=== PATIENT | male | born 1995 | race Caucasian/White ===

== ENCOUNTER 2024-04-24 22:52 | Emergency (ER) | payer MEDICAID ==
[~2024-04-24] VITALS: Ht 167.6 cm; Wt 75.3 kg
[2024-04-24 22:57] VITALS: BP 135/81; PULSE 105; RESP 19; TEMP 98.2; O2SAT 97
[2024-04-25 00:22] VITALS: PULSE 94; RESP 18; O2SAT 98
[2024-04-25] MEDS: ALBUTEROL SULFATE/IPRATROPIU 3 ML SOL IH ONE (00:22)
[2024-04-25 00:46] LABS: BASOPHILS # (AUTO) 0.1 K/uL (0.00-0.22); BASOPHILS % (AUTO) 0.7 % (0.0-2.0); EOSINOPHILS # (AUTO) 0.1 K/uL (0-0.4); EOSINOPHILS % (AUTO) 1.6 % (0.0-4.0); HEMATOCRIT 45.6 % (36-52); HEMOGLOBIN 15.6 g/dL (12.0-18.0); LYMPHOCYTES # (AUTO) 1.6 K/uL (2.0-11.5); LYMPHOCYTES % (AUTO) 20.9 % (20.5-51.1); MEAN CORPUSCULAR HEMOGLOBIN 33 pg (27-31); MEAN CORPUSCULAR HGB CONC 34 g/dL (33-37); MEAN CORPUSCULAR VOLUME 95.5 fL (80-94); MONOCYTES # (AUTO) 0.8 K/uL (0.8-1.0); MONOCYTES % (AUTO) 10.6 % (1.7-9.3); NEUTROPHILS # (AUTO) 5.2 K/uL (1.8-7.7); NEUTROPHILS % (AUTO) 66.2 % (42.2-75.2); PLATELET COUNT (AUTO) 231 K/uL (140-450); RED BLOOD CELL COUNT(AUTO) 4.78 MIL/uL (4.20-6.10); RED CELL DISTRIBUTION WIDTH 13.4 % (11.6-13.7); WHITE BLOOD COUNT (AUTO) 7.8 K/uL (4.8-10.8)
[2024-04-25 00:48] LABS: FLU A ANTIGEN negative (NEGATIVE); FLU B ANTIGEN NEGATIVE (NEGATIVE)
[2024-04-25 00:52] LABS: CHLORIDE 102 mmol/L (98-107); SODIUM SERUM 140 mmol/L (136-145)
[2024-04-25 00:57] LABS: ALANINE AMINOTRANSFERASE 111 U/L (12-78); ALBUMIN 3.7 g/dL (3.4-5.0); ALKALINE PHOSPHATASE 153 U/L (50-136); ANION GAP 15.4 (8-16); ASPARTATE AMINOTRANSFERASE 71 U/L (15-37); CALCIUM 9.1 mg/dL (8.5-10.1); CARBON DIOXIDE 27.7 mmol/L (21-32); GFR ARICAN-AMERICAN 114 mL/min (>90); GFR NON ARICAN-AMERICAN 95 mL/min (>90); GLUCOSE 116 mg/dL (74-106); TOTAL BILIRUBIN 0.3 mg/dL (0.0-1.0); UREA NITROGEN, BLOOD 7 mg/dL (7-18)
[2024-04-25] MEDS ORDERED: MAG355OR2 PO (01:08)
[2024-04-25] MEDS ORDERED: PRED20TA5 PO (01:08)
[2024-04-25] MEDS ORDERED: AZIT250T4 PO (01:08)
[2024-04-25] MEDS ORDERED: ALBU0.0912 INH (01:16)
[2024-04-25] MEDS: FAMOTIDINE 20 MG TAB PO ONE (01:46)
[2024-04-25] MEDS: predniSONE 20 MG TAB PO ONE (01:49)
[2024-04-25 01:50] VITALS: BP 129/81; PULSE 94; RESP 18; TEMP 98.2; O2SAT 98
== END 2024-04-25 01:50 | disposition home or self-care (01) ==
LOC: MED 22:52
DX: J20.9 Acute bronchitis, unspecified (principal); R74.01 Elevation of levels of liver transaminase levels; R07.9 Chest pain, unspecified; F10.10 Alcohol abuse, uncomplicated; Z20.822 Contact with and (suspected) exposure to COVID-19; R00.0 Tachycardia, unspecified; J45.909 Unspecified asthma, uncomplicated; Z79.899 Other long term (current) drug therapy; Y90.9 Presence of alcohol in blood, level not specified
CPT/HCPCS: 36415; 71045; 80053; 84484; 85025; 87426; 87804; 93005; 94640; 99285; J7512; Q0092